=== PATIENT | male | born 1995 | race Caucasian/White ===

== ENCOUNTER 2019-10-15 12:58 | Emergency (ER) | payer BC ==
[2019-10-15] MEDS ORDERED: KEFLEX500 MG PO (14:43)
[2019-10-15 14:53] VITALS: BP 99/50
== END 2019-10-15 15:02 | disposition home or self-care (01) | DRG 605 ==
LOC: ED 12:58
PROC: 0HQLXZZ Repair Left Lower Leg Skin, External Approach (ICD-10-PCS; principal; 2019-10-15)
DX: S81.812A Laceration without foreign body, left lower leg, initial encounter (principal); W16.622A Jumping or diving into natural body of water striking bottom causing other injury, initial encounter; Y93.11 Activity, swimming; Y92.828 Other wilderness area as the place of occurrence of the external cause
CPT/HCPCS: L1830